=== PATIENT | male | born 1980 | race Caucasian/White ===

== ENCOUNTER 2023-12-15 02:46 | Emergency (ER) | payer SELFPAY ==
[~2023-12-15] VITALS: Ht 175.3 cm; Wt 79.4 kg
[2023-12-15 03:00] VITALS: TEMP 98.5
[2023-12-15] MEDS ORDERED: ACETAMINOPHEN ES 500 MG TABLET ONE (03:54)
[2023-12-15] MEDS ORDERED: CYCLOBENZAPRINE 10 MG TABLET ONE (03:54)
[2023-12-15] MEDS ORDERED: KETOROLAC TROMETHAMINE INJ 30 MG/ML VIAL ONE (03:54)
[2023-12-15] MEDS: KETOROLAC TROMETHAMINE 15 MG/ML VIAL IM ONE (04:04)
[2023-12-15] MEDS: ACETAMINOPHEN ES 500 MG TABLET PO ONE (04:04)
[2023-12-15] MEDS: CYCLOBENZAPRINE 10 MG TABLET PO ONE (04:04)
[2023-12-15] MEDS ORDERED: LIDO30AD10 TP (04:45)
[2023-12-15] MEDS ORDERED: CYCL10TA9 PO (04:45)
[2023-12-15] MEDS ORDERED: KETO10TA2 PO (04:45)
[2023-12-15 04:58] VITALS: BP 121/71; O2SAT 98
== END 2023-12-15 05:40 | disposition home or self-care (01) ==
LOC: ER 02:54
DX: S16.1XXA Strain of muscle, fascia and tendon at neck level, initial encounter (principal); S39.012A Strain of muscle, fascia and tendon of lower back, initial encounter; V49.3XXA Car occupant (driver) (passenger) injured in unspecified nontraffic accident, initial encounter; Y93.89 Activity, other specified; Y92.89 Other specified places as the place of occurrence of the external cause; Y99.8 Other external cause status
CPT/HCPCS: 99283; 96372; 73100; J1885